=== PATIENT | female | born 1930 | race Caucasian/White ===

== ENCOUNTER 2017-01-17 10:01 | Emergency (ER) | payer OTHER, MEDICARE ==
[~2017-01-17] VITALS: Ht 151.1 cm; Wt 72.6 kg
[2017-01-17] MEDS ORDERED: AMILORIDE HCL5 M1 PO (10:56)
[2017-01-17] MEDS ORDERED: AMLODIPINE BESY10 M1 PO (10:56)
--- NOTE | 2017-01-17 10:56 | ED GENERAL ADULT ---
History of Present Illness General Chief Complaint: Low Back Pain/Injury Stated Complaint: BACK PAIN Source: patient, family Exam Limitations: no limitations Reconcile Medications Amiloride HCl 5 MG TABLET 1 TAB PO DAILY UNKNOWN (Reported) Amlodipine Besylate 10 MG TABLET 1 TAB PO DAILY HEART (Reported) Aspirin (Aspirin*) 81 MG TAB.CHEW 1 TAB PO DAILY HEART HEALTH (Reported) Atorvastatin Calcium 40 MG TABLET 1 TAB PO DAILY CHOLESTEROL (Reported) Azilsartan Medoxomil (Edarbi) 80 MG TABLET 1 TAB PO DAILY BP (Reported) Carvedilol 6.25 MG TABLET 1 TAB PO BID HEART (Reported) Cholecalciferol (Vitamin D3) 1,000 UNIT TABLET 1 TAB PO DAILY SUPPLEMENT ( Reported) Furosemide 20 MG TABLET 1 TAB PO DAILY WATER PILL (Reported) Ibuprofen 800 MG TABLET 1 TAB PO TID PAIN Insulin Glargine,Hum.rec.anlog (Lantus Solostar) 100 UNIT/ML (3 ML) INSULN.PEN 16 UNIT SC QPM DIABETES (Reported) Insulin Lispro (Humalog Kwikpen U-100) 100 UNIT/ML INSULN.PEN 2 U SC 1/2 HR AC DIABETES (Reported) Methylcellulose (Fiber) 500 MG TABLET 1 TAB PO DAILY SUPPPLEMENT (Reported) Multivitamin (Multi-Day Vitamins) 1 EACH TABLET 1 TAB PO DAILY SUPPLEMENT ( Reported) [place]-3 Fatty Acids/Fish Oil (Fish Oil 1,000 MG Capsule) 340 MG-1,000 MG CAPSULE 1 CAP PO DAILY SUPPLEMENT (Reported) Vit C/Vit E/Lutein/Min/[place]-3 (Ocuvite Softgel) 150 MG-30 UNIT-5 MG-150 MG CAPSULE 1 TAB PO DAILY EYE (Reported) Triage Note: PT TO ED WITH UPPER RIGHT BACK AND RIGHT ARM PAIN X 3 DAYS. PT DENIES FALL OR INJURY TO THE AREA. DENIES N/V/D OR URINARY SYMPTOMS. Triage Nurses Notes Reviewed? yes HPI: 86 year old woman with significant past medical history of osteoporosis and arthritis complaining of right shoulder/right arm pain for the past three days. She does not recall any inciting event for her shoulder pain and reports mild/ severe aching discomfort in the shoulder and right arm without any radiation. She has tried tylenol for pain relief that had reportedly helped and allowed her to get some sleep. Reaching for objects or for door handles and movement in general seem to exacerbate the pain. She denies any associated paresthesias or weakness, but admits to persistent baseline numbness/tingling in her fingers secondary to a history of carpal tunnel syndrome. Additionally she denies any headache, fever, chills, blurred/double vision, chest pain, palpitations, shortness of breath, nausea, vomiting, diarrhea. (ANASTACIO HAGEN MD) Vital Signs & Intake/Output Vital Signs & Intake/Output Vital Signs Date Time Temp Pulse Resp B/P Pulse O2 O2 Flow FiO2 Ox Delivery Rate 01/17 1212 98.0 64 20 160/70 98 Room Air 01/17 1016 97.7 62 18 175/67 97 Room Air Room Air Allergies Coded Allergies: Penicillins (UNKNOWN 11/05/16) chloroprocaine (UNKNOWN 11/05/16) hydralazine (UNKNOWN 11/05/16) fluorescein (Severe, EYE BLEEDING 11/05/16) oxycodone (From Percocet) (Intermediate, NAUSEA 11/05/16) (EDWIN WOLF,CLAUDIO Feng) Past History Travel History Traveled to [place] past 21 day No Medical History Any Pertinent Medical History? 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 Yes (ANASTACIO HAGEN MD) Review of Systems Review of Systems Constitutional: Reports: see HPI. (ANASTACIO HAGEN MD) Physical Exam Physical Exam General Appearance: well developed/nourished, no apparent distress, alert, awake , comfortable Comments: General - well developed, well nourished elderly woman in no acute distress HEENT - NCAT, PERRL, EOMI, anicteric sclera Back - no spinal tenderness Neck - Supple, No JVD CVS - holosystolic murmur Resp - CTA bilaterally w/o wheezing/rhonchi/crackles Ext: strength 5/5 in bilateral upper extremities, sensation intact -RUE: Right shoulder tenderness, free range of motion, no deformity or skin changes Core Measures ACS in differential dx? No CVA/TIA Diagnosis: No Severe Sepsis Present: No Septic Shock Present: No (ANASTACIO HAGEN MD) Progress Differential Diagnoses I considered the following diagnoses in my evaluation of the patient: osteoarthritis, musculoskeletal strain, cervical radiculopathy, pathologic fracture Initial ED EKG: no ST T wave changes, Left bundle branch block Comments: 86-year-old woman with an extensive medical history significant for osteoporosis and arthritis seen for evaluation of right upper extremity pain for the past 3 days. Physical examination demonstrated full strength of the bilateral upper extremities with intact sensation and no limited range of movement. She does however have right shoulder tenderness to palpation any obvious deformity or signs of acute trauma. She denies using any NSAID medications for pain relief for which she was provided ibuprofen 400 mg. Radiographs of her cervical spine and right upper extremity are to be obtained to rule out any occult fracture. Cervical spine radiograph demonstrated multilevel degenerative changes with no acute findings. Radiograph of the right shoulder demonstrates evidence of a prior healed right humeral fracture with mild degenerative change. Patient is to be discharged to home with a prescription of ibuprofen to be taken as needed for pain relief and instruction to follow-up/establish care with a primary care provider for further evaluation and treatment of her right shoulder pain. (ANASTACIO HAGEN MD) Plan of Care: Orders Procedure Date/time Status EKG 01/17 1022 Active Departure Departure Disposition: HOME OR SELF CARE Condition: Stable Clinical Impression Primary Impression: Sprain shoulder/arm Qualifiers: Encounter type: initial encounter Laterality: right Qualified Code: S43.401A - Unspecified sprain of right shoulder joint, initial encounter Referrals: JOO DAWN MD (PCP/Family) Additional Instructions: Establish care with a primary care provider after discharge for further evaluation of your arthritis and multiple pain complaints. Continue to take NSAID medications like ibuprofen, Motrin, Aleve relief of your pain. Departure Forms: Customer Survey General Discharge Information Prescriptions: Current Visit Scripts Ibuprofen 1 TAB PO TID #90 TAB (ANASTACIO HAGEN MD) Resident Co-Sign Statement Statement: ED Attending supervision documentation- [x] I saw and evaluated the patient. I have also reviewed all the pertinent lab results and diagnostic results. I agree with the findings and the plan of care as documented in the Resident's documentation. [] I have reviewed the ED Record and agree with the Resident's documentation. [] Additions or exceptions (if any) to the Resident's note and plan are summarized below: [] (EDWIN WOLF,CLAUDIO Feng) Critical Care Note Critical Care Note Critical Care Time: non-applicable (HIEU WOLF,ANASTACIO)
[2017-01-17] MEDS ORDERED: CARVEDILOL6.25 M1 PO (10:57)
[2017-01-17] MEDS ORDERED: ATORVASTATIN CA40 M1 PO (10:57)
[2017-01-17] MEDS ORDERED: HUMALOG KW100 UNIT/1 SC (10:58)
[2017-01-17] MEDS ORDERED: EDARBI80 M1 PO (10:58)
[2017-01-17] MEDS ORDERED: LANTUS SOL100 UNIT/1 SC (10:59)
[2017-01-17] MEDS ORDERED: ASPIRIN81 M4 PO (10:59)
[2017-01-17] MEDS ORDERED: FUROSEMIDE20 M1 PO (10:59)
[2017-01-17] MEDS ORDERED: VITAMIN D31000 UNI2 PO (11:00)
[2017-01-17] MEDS ORDERED: MULTI-DAY VITA1 EACH PO (11:00)
[2017-01-17] MEDS ORDERED: FIBER500 MG PO (11:00)
[2017-01-17] MEDS ORDERED: OCUVITE SOFTGE1 EACH PO (11:01)
[2017-01-17] MEDS ORDERED: FISH OIL 1,0001 EACH PO (11:01)
--- NOTE | 2017-01-17 11:49 | RADIOLOGY REPORT ---
EXAMINATION: XR SHOULDER, RIGHT CLINICAL INFORMATION: Arthritis and shoulder pain. Rule out fracture. No history of trauma. COMPARISON: 04/01/2012. TECHNIQUE: AP external rotation, Grashey, scapular Y, and axillary views of the right shoulder. FINDINGS: Mild narrowing of the glenohumeral joint with osteophyte formation at the inferior margin of the humeral head and glenoid. Focal deformity of the humeral neck is related to prior healed fracture. Additional corticated densities are seen at the greater tuberosity which may also relate to the prior injury; acute trauma is less likely due to the absence of swelling. There are degenerative changes at the acromioclavicular joint. IMPRESSION: Evidence of prior healed right humeral fracture with mild degenerative change. Difficult to exclude subtle acute trauma at the greater tuberosity although these findings likely relate to sequela of prior injury. Additional degenerative changes are seen in the glenohumeral and acromioclavicular joints as above.
--- NOTE | 2017-01-17 11:51 | RADIOLOGY REPORT ---
EXAMINATION: XR CERVICAL SPINE CLINICAL INFORMATION: Neck pain. Rule out fracture. No history of trauma. COMPARISON: None TECHNIQUE: 3 views with 4 images of the cervical spine obtained. FINDINGS: Alignment is normal. Moderate multilevel degenerative disc disease with disc narrowing and osteophyte formation is seen spanning from C5 through T1, similar to prior. Associated multilevel facet arthropathy. No acute fracture or dislocation or prevertebral soft tissue swelling. IMPRESSION: Multilevel degenerative changes, similar to prior. No acute findings are demonstrated.
[2017-01-17] MEDS ORDERED: IBUPROFEN800 M1 PO (11:58)
[2017-01-17 12:12] VITALS: BP 160/70
== END 2017-01-17 12:16 ==
LOC: ERH 10:01
DX: S43.401A Unspecified sprain of right shoulder joint, initial encounter (principal); X58.XXXA Exposure to other specified factors, initial encounter
CPT/HCPCS: 72040; 73030-RT; 93005; 93010